=== PATIENT | female | born 1970 | race Caucasian/White ===

== ENCOUNTER 2017-12-01 15:40 | Outpatient (CLI) | payer BC ==
--- NOTE | 2017-12-01 16:50 | MRI ---
MRI OF RIGHT SHOULDER PERFORMED WITHOUT CONTRAST ENHANCEMENT: 12/01/17 HISTORY: Right shoulder pain. The AC joint shows some very mild arthritic change. The infraspinatus tendon is intact. There is some minimal bursal sided irregularity to the supraspina tus tendon suggesting some minimal bursal sided irregularity. Some trace fluid or edema changes in th e subacromial subdeltoid recess. There is a low grade undersurface tear of the more anterior aspect o f the supraspinatus tendon. The subscapularis muscle and tendon are intact and the biceps tendon is normal in position within the bicipital groove. Labrum shows a sublabral foramen. I do not see any definite labral tear. The inferior glenohumeral li gament is intact. IMPRESSION: Minimal bursal side fraying to the supraspinatus tendon and a low grade undersurface tear. POS: [facility]
== END 2017-12-01 15:41 | disposition home or self-care (01) ==
LOC: TBSIIMAG 15:40
PROVIDERS: ATTEND Neurological Surgery
DX: M75.101 Unspecified rotator cuff tear or rupture of right shoulder, not specified as traumatic (principal); M25.511 Pain in right shoulder

== ENCOUNTER 2019-01-03 07:27 | Outpatient (CLI) | payer BC ==
--- NOTE | 2019-01-03 08:47 | ULT ---
ABDOMINAL ULTRASOUND: HISTORY: Abdominal pain. FINDINGS: NO comparisons. The visualized aorta, IVC, and pancreas appear normal. There is a 1.7 cm echogenic mass within the left hepatic lobe. No additional mass is evident. No ev idence for intrahepatic biliary ductal dilatation. The common duct is not dilated. The gallbladder demonstrates no stones, all thickening, or pericholecystic fluid. Kidney demonstrate no hydronephrosis or mass. Spleen is normal in size and demonstrates no focal abnormality. IMPRESSION: A 1.7 cm echogenic left hepatic lobe mass, statistically a hemangioma. Further evaluation with multi phase with and without contrast CT abdomen versus short-term followup ultrasound. POS: OFF
== END 2019-01-03 07:28 | disposition home or self-care (01) ==
LOC: ULT 07:27
PROVIDERS: ATTEND Family Medicine
DX: R10.9 Unspecified abdominal pain (principal); R93.89 Abnormal findings on diagnostic imaging of other specified body structures
CPT/HCPCS: 76700

== ENCOUNTER 2019-01-20 07:25 | Outpatient (CLI) | payer BC ==
--- NOTE | 2019-01-20 09:41 | CT ---
CT ABDOMEN WITH AND WITHOUT IV CONTRAST USING HEMANGIOMA PROTOCOL: Date: 01/20/19 HISTORY: Left hepatic lobe mass on ultrasound of 01/03/19. FINDINGS: There is a 1.5 cm mass in the anterior aspect of the left lobe of the liver with peripheral nodule en hancement and centripetal filling consistent with hemangioma. The lung bases are clear. The spleen, pancreas, adrenal glands, and kidneys are normal. No free air, free fluid, or lymphadenopathy seen in the abdomen. The small bowel loops are not abnormally dilated. There is no evidence of aneurysmal dilatation of the abdominal aorta. There are minimal degenerativ e changes in the spine. IMPRESSION: Liver hemangioma. POS: [facility]
== END 2019-01-20 07:26 | disposition home or self-care (01) ==
LOC: BICCT 07:25
PROVIDERS: ATTEND Family Medicine
DX: R93.89 Abnormal findings on diagnostic imaging of other specified body structures (principal); D18.09 Hemangioma of other sites
CPT/HCPCS: 74170

== ENCOUNTER 2020-10-02 17:30 | Outpatient (CLI) | payer BC | END 2020-10-02 17:31 | disposition home or self-care (01) | LOC: SLEEPLAB 17:30 | PROVIDERS: ATTEND Internal Medicine Pulmonary Disease | DX: G47.33 Obstructive sleep apnea (adult) (pediatric) (principal) | CPT/HCPCS: 95806 ==

== ENCOUNTER 2021-08-29 19:30 | Outpatient (CLI) | payer BC | END 2021-08-29 19:31 | disposition home or self-care (01) | LOC: SLEEPLAB 19:30 | PROVIDERS: ATTEND Internal Medicine Pulmonary Disease | DX: G47.61 Periodic limb movement disorder (principal); R53.83 Other fatigue; F32.9 Major depressive disorder, single episode, unspecified; R06.83 Snoring; G47.10 Hypersomnia, unspecified; G47.00 Insomnia, unspecified; I10 Essential (primary) hypertension; G47.50 Parasomnia, unspecified | CPT/HCPCS: 95810 ==